=== PATIENT | female | born 1960 | race Caucasian/White ===

== ENCOUNTER 2024-07-07 08:05 | Outpatient (CLI) | payer BC, SELFPAY ==
--- NOTE | 2024-07-07 09:19 | P.ANES_ITS ---
Anesthesia Charges Start Date/Time Anesthesia Start Date: 07/07/24 Anesthesia Start Time: 08:52 Stop Date/Time Anesthesia Stop Date: 07/07/24 Anesthesia Stop Time: 09:24 Coding CPT Codes CPT Codes: QUINTON LWR INTST NDGA NOS - [id number] ([id number]) P1 - NORMAL HEALTHY PATIENT, QK - TEST DEVELOPER 2-4 CNCRNT ANES PROC, QX - SEE WHEELER SVC W/ MED DIRECTION
--- NOTE | 2024-07-07 09:19 | W.ANESCHARGE ---
Anesthesia Charges Start Date/Time Anesthesia Start Date: 07/07/24 Anesthesia Start Time: 08:52 Stop Date/Time Anesthesia Stop Date: 07/07/24 Anesthesia Stop Time: 09:24 Coding CPT Codes CPT Codes: QUINTON LWR INTST NDGA NOS - [id number] ([id number]) P1 - NORMAL HEALTHY PATIENT, QK - BENDING ROLL HAND 2-4 CNCRNT ANES PROC, QX - CONSULTING IT ARCHITECT SVC W/ MED DIRECTION
--- NOTE | 2024-07-07 09:26 | P.ANES_ITS ---
Anesthesia Charges Start Date/Time Anesthesia Start Date: 07/07/24 Anesthesia Start Time: 08:52 Stop Date/Time Anesthesia Stop Date: 07/07/24 Anesthesia Stop Time: 09:24 Coding CPT Codes CPT Codes: QUINTON LWR INTST NDAZ NOS - [id number] ([id number]) P1 - NORMAL HEALTHY PATIENT, QK - BAKERY MANAGER 2-4 CNCRNT ANES PROC, QX - COSTUMING SUPERVISOR SVC W/ MED DIRECTION
--- NOTE | 2024-07-07 09:26 | W.ANESCHARGE ---
Anesthesia Charges Start Date/Time Anesthesia Start Date: 07/07/24 Anesthesia Start Time: 08:52 Stop Date/Time Anesthesia Stop Date: 07/07/24 Anesthesia Stop Time: 09:24 Coding CPT Codes CPT Codes: QUINTON LWR INTST NDTN NOS - [id number] ([id number]) P1 - NORMAL HEALTHY PATIENT, QK - CODE OFFICIAL 2-4 CNCRNT ANES PROC, QX - DRAFTER (CAD) ELECTRICAL SVC W/ MED DIRECTION
== END 2024-07-07 08:06 | disposition home or self-care (01) ==
PROVIDERS: PCP Family Medicine; Visit Provider Surgery
DX: Z12.11 Encounter for screening for malignant neoplasm of colon (principal); K63.89 Other specified diseases of intestine; Z86.0100 Personal history of colon polyps, unspecified
CPT/HCPCS: 00811; 45380; 88305; J2704